=== PATIENT | male | born 1975 ===

== ENCOUNTER 2021-10-03 18:20 | Emergency (ER) | payer SELFPAY ==
[2021-10-03 18:32] VITALS: BP 143/79
--- NOTE | 2021-10-03 19:17 | XRay Report ---
CHEST 2 VIEWS INDICATION / CLINICAL INFORMATION: cough, congestion. COMPARISON: None available. FINDINGS: SUPPORT DEVICES: None. HEART / MEDIASTINUM: No significant abnormality. LUNGS / PLEURA: No significant pulmonary or pleural abnormality. No pneumothorax. ADDITIONAL FINDINGS: No significant additional findings. IMPRESSION: 1. No acute findings. Signer Name: Kyle Travis DO Signed: 10/03/2021 7:13 PM Workstation Name: [id number]
--- NOTE | 2021-10-03 19:40 | Emergency Department Report ---
- General Chief Complaint: Upper Respiratory Infection Stated Complaint: BODY PAIN PUI?: Yes Time Seen by Provider: 10/03/21 18:33 Source: patient Mode of arrival: Ambulatory Limitations: No Limitations - History of Present Illness Initial Comments: This pleasant 28-year-old male presents the emergency department chief complaint cough, congestion, loss of taste and smell, body aches over the past 4 days. Patient denies any known past medical history, current medication use or known allergy to medication. He reports subjective fever. He denies any known sick contacts. - Related Data Previous Rx's Medication Instructions Recorded Last Taken Type Albuterol Sulfate [Proventil Hfa] 6.7 gm IH Q4HR #1 hfa.aer.ad 10/03/21 Unknown Rx Azithromycin [Zithromax Z-BERNY] 0 mg PO DAILY #1 pack 10/03/21 Unknown Rx Prednisone [predniSONE 10 mg 10 mg PO .TAPER #1 tab.ds.pk 10/03/21 Unknown Rx (6-Day Pack, 21 Tabs)] Allergies Allergy/AdvReac Type Severity Reaction Status Date / Time No Known Allergies Allergy Unverified 10/03/21 18:30 ED Review of Systems ROS: Stated complaint: BODY PAIN Other details as noted in HPI Comment: All other systems reviewed and negative Constitutional: see HPI, fever, malaise. denies: chills Eyes: denies: eye pain, eye discharge, vision change ENT: as per HPI. denies: ear pain, throat pain Respiratory: cough. denies: shortness of breath, wheezing Cardiovascular: denies: chest pain, palpitations Endocrine: no symptoms reported Gastrointestinal: denies: abdominal pain, nausea, diarrhea Genitourinary: denies: urgency, dysuria Musculoskeletal: as per HPI, myalgia. denies: back pain, joint swelling, arthralgia Skin: denies: rash, lesions Neurological: denies: headache, weakness, paresthesias Psychiatric: denies: anxiety, depression Hematological/Lymphatic: denies: easy bleeding, easy bruising ED Past Medical Hx - Past Medical History Previous Medical History?: No - Surgical History Past Surgical History?: No - Medications Home Medications: Home Medications Medication Instructions Recorded Confirmed Last Taken Type Albuterol Sulfate [Proventil Hfa] 6.7 gm IH Q4HR #1 hfa.aer.ad 10/03/21 Unknown Rx Azithromycin [Zithromax Z-BERNY] 0 mg PO DAILY #1 pack 10/03/21 Unknown Rx Prednisone [predniSONE 10 mg 10 mg PO .TAPER #1 tab.ds.pk 10/03/21 Unknown Rx (6-Day Pack, 21 Tabs)] ED Physical Exam - General Limitations: No Limitations General appearance: alert, in no apparent distress - Head Head exam: Present: atraumatic, normocephalic - Eye Eye exam: Present: normal appearance, PERRL, EOMI Pupils: Present: normal accommodation - ENT ENT exam: Present: normal exam, normal orophraynx, mucous membranes moist - Neck Neck exam: Present: normal inspection, full ROM. Absent: tenderness, meningismus - Respiratory Respiratory exam: Present: normal lung sounds bilaterally. Absent: respiratory distress, wheezes, rales, rhonchi, stridor - Cardiovascular Cardiovascular Exam: Present: regular rate, normal rhythm, normal heart sounds. Absent: systolic murmur, diastolic murmur, rubs, gallop - GI/Abdominal GI/Abdominal exam: Present: soft, normal bowel sounds. Absent: distended, tenderness, guarding, rebound, rigid - Rectal Rectal exam: Present: deferred - Extremities Exam Extremities exam: Present: normal inspection, full ROM, normal capillary refill. Absent: tenderness, calf tenderness (Negative Homans' sign bilaterally) - Back Exam Back exam: Present: normal inspection, full ROM. Absent: tenderness, CVA tenderness (R), CVA tenderness (L) - Neurological Exam Neurological exam: Present: alert, oriented X3, normal gait - Psychiatric Psychiatric exam: Present: normal affect, normal mood - Skin Skin exam: Present: warm, dry, intact, normal color. Absent: rash ED Course Vital Signs 10/03/21 18:31 Temperature 98.1 F Pulse Rate 88 Respiratory 17 Rate Blood Pressure 143/79 [Left] O2 Sat by Pulse 100 Oximetry ED Medical Decision Making - Radiology Data Radiology results: report reviewed, image reviewed Age/Sex: 28 / M ADM Date: 10/03/21 Loc: ED Attending Dr: Ordering Physician: PANKAJ DUQUE Date of Service: 10/03/21 Procedure(s): XR chest routine 2V Accession Number(s): [id number] cc: PANKAJ DUQUE Fluoro Time In Minutes: CHEST 2 VIEWS INDICATION / CLINICAL INFORMATION: cough, congestion. COMPARISON: None available. FINDINGS: SUPPORT DEVICES: None. HEART / MEDIASTINUM: No significant abnormality. LUNGS / PLEURA: No significant pulmonary or pleural abnormality. No pneumothorax. ADDITIONAL FINDINGS: No significant additional findings. IMPRESSION: 1. No acute findings. Signer Name: Kyle Travis DO Signed: 10/03/2021 7:13 PM Workstation Name: [id number] Transcribed By: HECTOR Dictated By: KYLE TRAVIS DO Electronically Authenticated By: KYLE TRAVIS DO Signed Date/Time: 10/03/211912 - Medical Decision Making Patient is well-appearing in no acute distress. He is PERC negative and a low risk by Wells criteria making PE unlikely. Vital signs are stable. He is in no acute distress. I suspect the patient may have COVID-19's secondary to his symptoms. Chest x-ray is unremarkable. We will treat the patient with supportive treatment and recommend he continue to wear his mask and adhere to self quarantine and following CDC guidelines. Recommend outpatient testing for COVID-19 to confirm this. He was instructed to get in pulse oximeter to continue to monitor his oxygen level and if it drops below 90 persistently recommend he return to the emergency department for evaluation and possible admission oxygen therapy. He verbalized understand these instructions all his questions were answered. - Differential Diagnosis Pneumonia, COVID-19, acute bronchitis Critical care attestation.: If time is entered above; I have spent that time in minutes in the direct care of this critically ill patient, excluding procedure time. ED Disposition Clinical Impression: Suspected COVID-19 virus infection Upper respiratory infection Qualifiers: URI type: unspecified viral URI Qualified Code(s): J06.9 - Acute upper respiratory infection, unspecified Disposition: HOME / SELF CARE / HOMELESS Is pt being admited?: No Condition: Stable Instructions: Viral Respiratory Infection, [id number] Prescriptions: Prednisone [predniSONE 10 mg (6-Day Pack, 21 Tabs)] 10 mg PO .TAPER #1 tab.ds.pk Albuterol Sulfate [Proventil Hfa] 6.7 gm IH Q4HR #1 hfa.aer.ad Azithromycin [Zithromax Z-BERNY] 0 mg PO DAILY #1 pack Forms: Work/School Release Form(ED) Time of Disposition: 19:40
== END 2021-10-03 18:35 | disposition home or self-care (01) ==
LOC: ED 18:20
DX: J06.9 Acute upper respiratory infection, unspecified (principal); Z20.822 Contact with and (suspected) exposure to COVID-19
CPT/HCPCS: 71046; 99283